=== PATIENT | male | born 1995 | race African-American/Black ===

== ENCOUNTER 2018-09-05 15:10 | Emergency (ER) | payer OTHER ==
[~2018-09-05] VITALS: Ht 172.7 cm; Wt 108.9 kg
[2018-09-05] MEDS ORDERED: STEROID (15:19)
[2018-09-05] MEDS ORDERED: MUSCLE RELAXER (15:19)
[2018-09-05] MEDS ORDERED: ACETAMINOPHEN-1 EAC1 PO (17:17)
[2018-09-05] MEDS ORDERED: NABUMETONE 750750 M1 PO (17:17)
[2018-09-05 17:42] VITALS: BP 118/61
== END 2018-09-05 18:03 | disposition home or self-care (01) ==
LOC: M.ERS 15:10
DX: M43.06 Spondylolysis, lumbar region (principal); M54.32 Sciatica, left side; M54.31 Sciatica, right side; M41.80 Other forms of scoliosis, site unspecified